=== PATIENT | female | born 1935 | race Caucasian/White ===

== ENCOUNTER 2017-11-24 01:06 | Emergency (ER) | payer OTHER ==
[~2017-11-24] VITALS: Ht 162.6 cm; Wt 63.5 kg
[2017-11-24 01:19] VITALS: BP 169/79
[2017-11-24 02:27] LABS: Basophils # (auto) 0.1 uL; Basophils % (auto) 0.9 % (0.0-2.0); Eosinophils # (auto) 0 uL; Eosinophils % (auto) 0.3 % (0.0-7.0); Hematocrit 45.8 % (36.0-46.0); Hemoglobin 15.5 g/dL (12.2-16.2); Lymphocytes # (auto) 1.1 uL; Lymphocytes % (auto) 17.6 % (10.0-50.0); Mean Corpuscular Hemoglobin 30.2 pg (28.0-32.0); Mean Corpuscular Hgb Conc. 33.8 g/dL (32.0-36.0); Mean Corpuscular Volume 89.6 fL (80.0-100.0); Monocytes # (auto) 0.8 uL; Monocytes % (auto) 13.5 % (0.0-12.0); Neutrophils # (auto) 4.1 uL; Neutrophils % (auto) 67.7 % (37.0-80.0); Nucleated Red Blood Cells % 0.1 %; Platelet Count (auto) 160 10^3/uL (140-450); Red Blood Cells 5.11 10^6/uL (4.0-5.20); Red Cell Distribution Width 13.8 % (11.8-14.3)
[2017-11-24 02:43] LABS: Alanine Aminotransferase 24 U/L (13-56); Albumin 3.5 g/dL (3.4-5.0); Amylase 57 U/L (25-115); Anion Gap 11 (5-15); Aspartate Aminotransferase 23 U/L (15-37); BUN/Creatinine Ratio 17.4; Blood Urea Nitrogen 16 mg/dL (7-18); Calcium 8.5 mg/dL (8.5-10.1); Carbon Dioxide 23 mmol/L (21-32); Chloride 105 mmol/L (98-107); GFR African American 73 mL/min; GFR Non-African American 60 mL/min; Glucose 95 mg/dL (74-106); INR 1.01 (0.9-1.15); Lipase 140 U/L (73-393); Magnesium 2.3 mg/dL (1.6-2.6); Partial Thromboplastin Time 24.7 sec (22.64-33.71); Potassium 4.1 mmol/L (3.5-5.1); Sodium 139 mmol/L (136-145)
[2017-11-24 02:49] LABS: Alkaline Phosphatase 84 U/L (45-117); Bilirubin, Total 0.4 mg/dL (0.2-1.0); Total Protein 7.2 g/dL (6.4-8.2)
== END 2017-11-24 05:20 ==
LOC: EDBD 01:06 → ER 01:10 → EDBD 01:10 → ER 05:20
DX: R10.9 Unspecified abdominal pain (principal); F03.90 Unspecified dementia, unspecified severity, without behavioral disturbance, psychotic disturbance, mood disturbance, and anxiety; R42 Dizziness and giddiness
CPT/HCPCS: 36415; 70450; 71045; 74176; 80053; 82150; 83690; 83735; 84484; 85025; 85610; 85730; 93005